=== PATIENT | female | born 1985 | race Two or more races ===

== ENCOUNTER 2025-03-14 06:21 | Emergency (ER) | payer MEDICAID, OTHER ==
[~2025-03-14] VITALS: Ht 165.1 cm; Wt 85.1 kg
[2025-03-14 06:24] VITALS: BP 141/85; PULSE 99; RESP 16; TEMP 99.2; O2SAT 100
== END 2025-03-14 09:05 | disposition left against medical advice (07) ==
LOC: ER 06:21
DX: R10.20 Pelvic and perineal pain unspecified side (principal); M79.605 Pain in left leg; Z79.899 Other long term (current) drug therapy

== ENCOUNTER 2025-03-17 18:34 | Emergency (ER) | payer MEDICAID ==
[~2025-03-17] VITALS: Ht 162.6 cm; Wt 84.0 kg
[2025-03-17 18:36] VITALS: BP 129/83; PULSE 100; RESP 19; TEMP 98.7; O2SAT 100
[2025-03-17 19:35] LABS: Hematocrit 37.6 % (36.0-46.0); Hemoglobin 12.6 g/dL (12.2-16.2); Mean Corpuscular Hemoglobin 28.3 pg (28.0-32.0); Mean Corpuscular Volume 84.9 fL (80.0-100.0); Nucleated Red Blood Cells % 0.0 %
[2025-03-17 19:42] LABS: Chloride 105 mmol/L (98-107); Potassium 3.8 mmol/L (3.5-5.1); Sodium 141 mmol/L (136-145)
[2025-03-17 19:43] LABS: Anion Gap 7 (5-15); Calcium 9.5 mg/dL (8.7-10.4); Carbon Dioxide 29 mmol/L (20-31)
[2025-03-17 19:48] LABS: BUN/Creatinine Ratio 7.1 (10.0-20.0); Glucose 84 mg/dL (74-106)
--- NOTE | 2025-03-17 19:59 | ED.PDOC ---
SURG PHYSICIAN ASST HPI Comments 39-year-old female states that she is about 6-7 weeks and now having some pelvic pain. Unprovoked. No known modifying factors. Chief Complaint: Pelvic Pain Time Seen by MD: 18:47 Reviewed Notes: Nurses Notes Allergies: Coded Allergies: NO KNOWN ALLERGIES (Unverified , 03/14/25) Information Source: Patient Timing: Days Severity: Moderate Past Medical History PAST MEDICAL HISTORY: Denies Social History Smoker: Non-Smoker Alcohol: Denies ETOH Use Drugs: Denies Drug Use Constitutional: reports: others Gastrointestinal: reports: abdominal pain Genitourinary: reports: pain, All Other Systems: Reviewed and Negative Physical Exam General Appearance: Mild Distress HEENT: Normal ENT Inspection, Pharynx Normal, TMs Normal Neck: Full Range of Motion, Non-Tender, Normal, Normal Inspection Respiratory: Chest Non-Tender, Lungs Clear, No Accessory Muscle Use, No Respiratory Distress, Normal Breath Sounds Cardiovascular: No Edema, No JVD, No Murmur, No Gallop, Normal Peripheral Pulses, Regular Rate/Rhythm Breast Exam: Deferred Gastrointestinal: No Organomegaly, Non Tender, No Pulsatile Mass, Normal Bowel Sounds, Soft Genitalia: Deferred Pelvic: Deferred Rectal: Deferred Extremities: No calf tenderness, Normal capillary refill, Normal inspection, Normal range of motion, Non-tender, No pedal edema Musculoskeletal : Apperance: Normal Neurologic: Alert, slide developer II-XII nml as Tested, No Motor Deficits, Normal Affect, Normal Mood, No Sensory Deficits Cerebellar Function: Normal Reflexes: Normal Skin: Dry, Normal Color, Warm Lymphatic: No Adenopathy Was a procedure done? Was a procedure done?: No Differential Diagnosis (BUILDING [employer]PER[employer]OR) Vaginal Bleeding: - Complete, - Incomplete, - Inevitable, - Missed, - Threatened, Abruptio Placentae, Ectopic , PID, Placenta Previa, Vaginitis, Other X-Ray, Labs, Meds, VS Vital Signs Date Time Temp Pulse Resp B/P (MAP) Pulse Ox O2 Delivery O2 Flow Rate FiO2 03/17/25 18:36 98.7 100 19 129/83 100 98.7 Lab Test 03/17/25 19:42 03/17/25 19:13 Range/Units Urine Color Light-yellow Yellow Urine Clarity Clear Clear Urine pH 6.5 5.0-9.0 Urine Specific [place] 1.022 1.001-1.035 Urine Protein Negative Negative Urine Ketones Negative Negative Urine Blood Negative Negative /uL Urine Nitrite Negative Negative Urine Bilirubin Negative Negative Urine Urobilinogen Normal Negative mg/dL Urine Leukocyte Esterase 2+ Negative /uL Urine RBC 1 0 - 4 /hpf Urine Microscopic WBC 5 0-5 /HPF Urine Squamous Epithelial Cells Few <5 /hpf Urine Bacteria Few H None Seen /hpf Urine Mucus Few None Seen Urine Glucose Normal Normal mg/dL White Blood Count 7.1 4.4-10.8 10^3/uL Red Blood Count 4.44 4.0-5.20 10^6/uL Hemoglobin 12.6 12.2-16.2 g/dL Hematocrit 37.6 36.0-46.0 % Mean Corpuscular Volume 84.9 80.0-100.0 fL Mean Corpuscular Hemoglobin 28.3 28.0-32.0 pg Mean Corpuscular Hemoglobin Concent 33.4 32.0-36.0 g/dL Red Cell Distribution Width 14.5 H 11.8-14.3 % Platelet Count 302 140-450 10^3/uL Mean Platelet Volume 7.9 6.9-10.8 fL Neutrophils (%) (Auto) 66.6 37.0-80.0 % Lymphocytes (%) (Auto) 26.1 10.0-50.0 % Monocytes (%) (Auto) 5.9 0.0-12.0 % Eosinophils (%) (Auto) 0.9 0.0-7.0 % Basophils (%) (Auto) 0.5 0.0-2.0 % Neutrophils # (Auto) 4.7 1.6-8.6 10 ^3/uL Lymphocytes # (Auto) 1.8 0.4-5.4 10 ^3/uL Monocytes # (Auto) 0.4 0-1.3 10 ^3/uL Eosinophils # (Auto) 0.1 0-0.8 10 ^3/uL Basophils # (Auto) 0 0-0.2 10 ^3/uL Nucleated Red Blood Cells 0.0 % Sodium Level 141 136-145 mmol/L Potassium Level 3.8 3.5-5.1 mmol/L Chloride Level 105 98-107 mmol/L Carbon Dioxide Level 29 20-31 mmol/L Anion Gap 7 5-15 Blood Urea Nitrogen 7 L 9-23 mg/dL Creatinine 0.98 0.550-1.02 mg/dL Glomerular Filtration Rate Calc 76 >90 mL/min BUN/Creatinine Ratio 7.1 L 10.0-20.0 Serum Glucose 84 74-106 mg/dL Calcium Level 9.5 8.7-10.4 mg/dL Beta HCG, Quantitative 1656.4 H 1.5-4.2 mIU/mL Time of 1ST Reevaluation: 19:00 Reevaluation 1ST: Unchanged Patient Education/Counseling: Diagnosis, Treatment Family Education/Counseling: No Family Present Departure 1 Departure Time of Disposition: 21:00 Impression: Primary Impression: Abdominal pain in early Disposition: HOME / SELF CARE / HOMELESS Condition: Stable Discharged With: Self Comments Patient has minimal pain at this time. I explained the risks of ectopic and miscarriage in the patient expresses understanding. Patient agrees to return within 2-3 days for repeat ultrasound and repeat hCG. Critical Care Note Critical Care Time?: No Stability Stability form required: No Heart Score Heart Score: Heart Score Response (Comments) Value History N/A 0 EKG N/A 0 Age N/A 0 Risk Factors N/A 0 Troponin N/A 0 Total 0 CURTIS WATKINS MD Mar 17, 2025 19:59
[2025-03-17 20:34] LABS: Urine Protein, UAD Negative (Negative)
[2025-03-17 20:39] LABS: Blood Urea Nitrogen 7 mg/dL (9-23)
--- NOTE | 2025-03-17 21:59 | DVH ---
EXAM: US OB ULTRASOUND COMP LESS 14WKS HISTORY: pelvic pain, early preg COMPARISON: US OB TRANS VAGINAL US on DOS: 03/17/25 TECHNIQUE: Transabdominal and transvaginal imaging was utilized. Grayscale and color doppler evaluation. Images were stored in the patient's permanent medical record. FINDINGS: UTERUS: 13.8 x 6.3 x 6.8 cm. Endometrial stripe: 1.4 cm. Uterine fibroid measuring up to 1.3 cm in the uterine fundus. RIGHT OVARY: 2.5 x 1.8 x 2.6 cm.Normal vascularity. Presumed anechoic cyst measuring up to 0.7 cm. LEFT OVARY: 2.2 x 1.5 x 2.1 cm. Normal vascularity. Presumed left complex ovarian cyst measuring up to 1.3 cm. OTHER: No free fluid is identified. Nabothian cysts. IMPRESSION: 1. No visualized intrauterine . 2. Thickened endometrium measuring up to 1.5 cm. 3. Uterine fibroid. 4. Correlate with serial beta HCG and imaging follow up if deemed necessary.
== END 2025-03-17 23:40 | disposition home or self-care (01) ==
LOC: ER 18:34
DX: O26.891 Other specified pregnancy related conditions, first trimester (principal); Z3A.01 Less than 8 weeks gestation of pregnancy
CPT/HCPCS: 36415; 76801; 76817; 80048; 81001; 84702; 85025